=== PATIENT | female | born 1965 | race Caucasian/White ===

== ENCOUNTER 2018-09-06 07:57 | Day surgery (SDC) | payer BC, OTHER ==
[~2018-09-06] VITALS: Ht 162.6 cm; Wt 72.5 kg
[2018-09-06 08:50] VITALS: Ht 162.6 cm; Wt 72.5 kg
[2018-09-06] MEDS ORDERED: OMEPRAZOLE (08:57)
[2018-09-06] MEDS ORDERED: FERROUS SULFATE (08:57)
[2018-09-06 09:42] VITALS: BP 94/55; PULSE 65; RESP 18
[2018-09-06] MEDS ORDERED: MIDAZOLAM 1 MG/ML 2 ML INJ ONE ×2 (10:35)
[2018-09-06] MEDS ORDERED: FENTAnyl 50 MCG/ML VIAL ONE (10:35)
[2018-09-06 11:02] VITALS: BP 93/56; PULSE 60; RESP 14
== END 2018-09-06 11:44 | disposition home or self-care (01) ==
LOC: GIL 07:57
PROVIDERS: ATTEND Internal Medicine Gastroenterology
DX: K29.30 Chronic superficial gastritis without bleeding (principal); D12.5 Benign neoplasm of sigmoid colon; K64.8 Other hemorrhoids; K57.30 Diverticulosis of large intestine without perforation or abscess without bleeding; K21.9 Gastro-esophageal reflux disease without esophagitis
CPT/HCPCS: 43239; 45380; 84703; 88305; 88312; J2250; J3010; Z7610